=== PATIENT | female | born 1965 | race Caucasian/White ===

== ENCOUNTER 2024-07-23 08:26 | Emergency (ER) | payer OTHER, SELFPAY ==
[2024-07-23 08:34] VITALS: BP 145/79; PULSE 102; RESP 16; TEMP 36.3; O2SAT 98
--- NOTE | 2024-07-23 09:13 | ED_ITS ---
HPI - URI/Sore Throat General Chief Complaint: Upper Respiratory Infection Stated Complaint: Cough Time Seen by Provider: 07/23/24 08:40 Source: patient and RN notes reviewed Mode of arrival: ambulatory Limitations: no limitations History of Present Illness HPI Narrative: 59-year-old female presents [facility] Care complaining of cough for 2 days. Patient reports having a productive cough that is worse at night. Patient reports that she feels ?wheezy at night?. Patient denies any upper respiratory symptoms. Patient reports she has a history of smoking and poor she goes through pack about every 2 weeks. Patient denies any fevers, body aches, chills, nausea, vomiting, diarrhea chest pain, shortness of breath. Patient is not taking anything [id number] to help. Patient reports having history of diabetes are and takes dulaglutide for it. Related Data Home Medications ?Medication ?Instructions ?Recorded ?Confirmed ?Last Taken ?Type atorvastatin 40 mg tablet mg 07/23/24 Unknown History dulaglutide 1.5 mg/0.5 mL mg subcut 07/23/24 Unknown History subcutaneous pen injector (Trulicity) lorazepam 1 mg tablet mg 07/23/24 Unknown History Allergies Allergy/AdvReac Type Severity Reaction Status Date / Time No Known Allergies Allergy Verified 07/23/24 08:37 Review of Systems Review of Systems: CONSTITUTIONAL: Denies fever, chills, body aches, or sweats. EYES: Denies visual changes, redness, or discharge. ENT: Negative for rhinorrhea, congestion, sore throat, or otalgia. CARDIOVASCULAR: Denies chest pain, palpitations, or edema. RESPIRATORY: Positive for cough and wheezing. Negative for dyspnea. GASTROINTESTINAL: Denies abdominal pain, nausea, vomiting, or diarrhea. GENITOURINARY: Denies dysuria or hematuria. SKIN: Denies rash or itching. MUSCULOSKELETAL: Denies back pain, joint pain, or myalgia. NEUROLOGIC: Denies headache, numbness, or weakness. PSYCHIATRIC: Denies anxiety or depression. All other systems reviewed are negative, except as documented in HPI. PMFSH Comments At the time of my signature, I reviewed and agree with the nursing past medical, surgical, social, and family history. There is no relevant family history pertinent to the patient complaint. Exam Narrative: GENERAL: This is a well-nourished, well-developed adult, in no apparent distress. They are non ill-appearing, nontoxic appearing. HEAD: normocephalic, atraumatic. EYES: Sclera clear/white. Vision is grossly intact. Conjunctiva normal bilaterally. Extraocular movements intact. EARS: External ears normal, auditory canals clear and without drainage, TMs without erythema or perforation. Hearing grossly intact. NOSE: External nose normal with no obvious nasal discharge, nasal turbinates without redness or swelling, no rhinorrhea. THROAT: Mucous membranes moist, posterior pharynx clear, without redness or swelling. Uvula is midline. NECK: Neck supple, non-tender without lymphadenopathy, masses or thyromegaly. CARDIOVASCULAR: Regular rate and rhythm without murmurs, gallops, or rubs. RESPIRATORY: Clear to auscultation. Breath sounds equal bilaterally. No wheezes, rales, or rhonchi. Respiratory rate normal, respiratory effort nonlabored, no respiratory distress SKIN: warm, Dry, intact with no suspicious lesions or rash, good texture and turgor. NEURO: awake, alert, and oriented to person, place and time. There were no obvious focal neurologic abnormalities. EXTREMITIES: No joint tenderness, effusion, or edema noted. BACK: Nontender without deformity. Course Course Emergency Course: Portions of this record may have been created with voice recognition software Level of Care: Express Care Visit Vital Signs Vital signs: Vital Signs Temperature 97.4 F L 07/23/24 08:34 Pulse Rate 102 H 07/23/24 08:34 Respiratory Rate 16 07/23/24 08:34 Blood Pressure 145/79 H 07/23/24 08:34 Pulse Oximetry 98 07/23/24 08:34 Oxygen Delivery Room Air 07/23/24 08:34 Temperature 97.4 F L 07/23/24 08:34 Pulse Rate 102 H 07/23/24 08:34 Respiratory Rate 16 07/23/24 08:34 Blood Pressure 145/79 H 07/23/24 08:34 Pulse Oximetry 98 07/23/24 08:34 Oxygen Delivery Room Air 07/23/24 08:34 MDM - URI/Sore Throat MDM Narrative Medical decision making narrative: Likely patient has a viral bronchitis. Given patient's smoking history will go ahead and give her a Medrol Dosepak. Will also give her albuterol inhaler as needed for wheezing or shortness of breath, and benzonatate tablets as needed for cough. Discussed physical exam findings. Advised supportive measures and signs/symptoms to go to the ER. Pt is appropriate for outpt treatment and f/u. Differential Diagnosis Differential diagnosis: Likely upper respiratory infection, viral infection, bronchitis and other (Allergies) Discharge Plan Discharge Clinical Impression: Bronchitis Patient Disposition: Home Condition: Stable Instructions: Acute Bronchitis (ED) Additional Instructions: Take Medrol Dosepak as directed. You may take Tessalon Perles as needed for cough. Use albuterol inhaler as needed for any wheezing or shortness breath. Recommend Flonase spray and Zyrtec to help with congestion (or Claritin/Racquel) Tylenol ibuprofen as needed for pain or fevers. Symptomatic treatment includes: rest, fluids, and increase humidity of the air at home. Follow up with your primary care provider as needed in 1 week Go to the ER for worsening symptoms, difficulty breathing, fevers, weakness, or other concerns Patient Language: Macedonian Prescriptions: New methylprednisolone 4 mg tablets,dose pack See Rx Instructions .ROUTE .COMPLEX Qty: 21 0RF Rx Instructions: for 6 days benzonatate 100 mg capsule 100 mg PO TID PRN (Reason: cough) Qty: 20 0RF albuterol sulfate [Ventolin HFA] 90 mcg/actuation HFA aerosol inhaler 2 puff inhalation QID PRN (Reason: shortness of breath or wheezing) Qty: 8.5 0RF No Action atorvastatin 40 mg tablet lorazepam 1 mg tablet Trulicity 1.5 mg/0.5 mL pen injector SUBCUT Follow-up/Referrals: Refugio,Monroe Montgomery MD [Primary Care Provider] - Time of Disposition: 08:57
== END 2024-07-23 09:02 | disposition home or self-care (01) ==
PROVIDERS: PCP Internal Medicine
DX: J40 Bronchitis, not specified as acute or chronic (principal); F17.200 Nicotine dependence, unspecified, uncomplicated
CPT/HCPCS: 99203; G0463